=== PATIENT | male | born 1985 | race Two or more races ===

== ENCOUNTER 2017-01-21 15:19 | Emergency (ER) | payer SELFPAY ==
[~2017-01-21] VITALS: Ht 180.3 cm; Wt 106.6 kg
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
[2017-01-21] MEDS ORDERED: ONDANSETRON PF 4 MG/2 ML VIAL. IV ONE (16:00)
[2017-01-21] MEDS ORDERED: IV NORMAL SALINE 1000ML BAG 1,000 ML IV ONE (16:00)
[2017-01-21] MEDS ORDERED: FAMOTIDINE 20 MG/2 ML VIAL IVP ONE (16:00)
[2017-01-21 16:30] LABS: BASO % 1 % (0-3); EOS % 1 % (0-3); HEMATOCRIT 44.9 % (39.0-53.0); HEMOGLOBIN 14.7 g/dL (13.0-17.5); LYMPH # 2.2 x10^3/uL (1.0-4.8); LYMPH % 29 % (24-48); MEAN CORPUSCULAR HEMOGLOBIN 29 pg (25-35); MEAN CORPUSCULAR HGB CONC 33 g/dL (31-37); MEAN CORPUSCULAR VOLUME 90 fL (79-100); MONO % 8 % (0-9); NEUT % 63 % (31-73); PLATELET COUNT 235 x10^3/uL (140-400); RED BLOOD COUNT 4.99 x10^6/uL (4.30-5.70); RED CELL DISTRIBUTION WIDTH 14.2 % (11.5-14.5); WHITE BLOOD COUNT 7.6 x10^3/uL (4.0-11.0)
[2017-01-21] MEDS ORDERED: CONTRAST GIVEN MC PRN (16:30)
[2017-01-21] MEDS ORDERED: IOHEXOL 300 MG/ML 75 ML VIAL IV ONE (16:30)
[2017-01-21 17:18] LABS: POTASSIUM ISTAT 4.6 mmol/L (3.5-5.0)
[2017-01-21 17:21] LABS: CALCIUM 9.5 mg/dL (8.5-10.1); GFR 88.3; POTASSIUM 4.3 mmol/L (3.5-5.1)
[2017-01-21 17:26] LABS: TOTAL BILIRUBIN 0.4 mg/dL (0.2-1.0); TOTAL PROTEIN 8.2 g/dL (6.4-8.2)
[2017-01-21 17:46] LABS: BILIRUBIN,URINE NEGATIVE (NEG); GLUCOSE,URINE NEGATIVE (NEG); NITRITE,URINE NEGATIVE (NEG); PH,URINE 5.5; PROTEIN,URINE NEGATIVE (NEG-TRACE); UROBILINOGEN,URINE 0.2 mg/dL (0.2 mg/dL)
[2017-01-21 17:53] LABS: BARBITURATES NEG (NEG); BENZODIAZEPINES NEG (NEG); CANNABINOIDS NEG (NEG); COCAINE NEG (NEG); METHADONE NEG (NEG); OPIATES NEG (NEG); PHENCYCLIDINE NEG (NEG)
[2017-01-21 17:57] LABS: BACTERIA,URINE 0 /HPF (0-FEW); RBC,URINE 0 /HPF (0-2); WBC,URINE OCC /HPF (0-4)
--- NOTE | 2017-01-21 18:06 | RAD ---
CT study of abdomen and pelvis with contrast HISTORY: Abdominal pain status post colostomy reversal 3 weeks ago. Nausea and vomiting diarrhea. TECHNIQUE: After IV infusion of 75 cc of Omnipaque 300, helical CT scanning of the abdomen and pelvis was performed. No GI contrast was administered administered. This may decrease the sensitivity to detect GI tract pathology. PQRS compliance Statement One or more of the following individualized dose reduction techniques were utilized for this study: 1. Automated exposure control 2. Adjustment of the mA and/or kV according to patient size 3. Use of iterative reconstruction technique FINDINGS: The liver and spleen and pancreas and gallbladder are normal. No extra hepatic biliary ductal dilatation is seen. No adrenal mass is evident. Both kidneys are normal. No focal aneurysmal dilatation of the abdominal aorta is seen. No enlarged abdominal or pelvic lymphadenopathy is seen. Urinary bladder wall is smooth. There are no CT findings of appendicitis. No obstructive bowel pattern is evident. Surgical anastomosis suture lines are present. There is wall thickening of colon suture line within the left mid abdomen with adjacent mesenteric edema. There is soft tissue edema of the anterior abdominal wall on the left side including thickening of the anterior abdominal wall musculature related to the recent surgery. Certainly, cellulitis may be present here clinically. There is a small amount of flank edema or fluid laterally on the left side. Otherwise no round abscess fluid collection is seen within the anterior abdominal wall. No abscess fluid collection is present within the intraperitoneal cavity. No free air or free intraperitoneal fluid is seen. No lung base consolidation is evident. No osteolytic process is seen. IMPRESSION: Wall thickening and mesenteric edema involving an anastomosis of what appears to be colon within the left mid abdomen. No bowel obstruction or free air or free fluid or intraperitoneal abscess is seen. There is edema of the anterior abdominal wall on the left side most likely post operative edema given the patient's history. There is thickening of the underlying abdominal wall musculature in this area as well. No soft tissue abscess is seen. Certainly, cellulitis may have the same appearance and clinical correlation is needed. Electronically signed by: Meek Crocker MD (01/21/2017 6:02 PM) [facility]
[2017-01-21 18:48] VITALS: BP 137/64
== END 2017-01-21 18:48 | disposition home or self-care (01) ==
LOC: ER 15:19
DX: R10.32 Left lower quadrant pain (principal); J45.909 Unspecified asthma, uncomplicated; Z79.899 Other long term (current) drug therapy
CPT/HCPCS: 36415; 74177; 80047; 80053; 80307; 81001; 83690; 85025; 96360; 99285; G0480; J7030; Q9967; G0479